=== PATIENT | male | born 1990 | race Caucasian/White ===

== ENCOUNTER → 2021-09-20 | Outpatient (POV) | payer BC, OTHER ==
[~2021-09-20] VITALS: Ht 180.3 cm; Wt 84.1 kg
[2021-09-20 11:05] VITALS: BP 148/88
== END ==
LOC: M IRPOV 10:57
PROVIDERS: ATTEND Radiology Diagnostic Radiology
DX: Q27.9 Congenital malformation of peripheral vascular system, unspecified (principal)